=== PATIENT | female | born 1985 | race Caucasian/White ===

== ENCOUNTER 2016-12-14 15:35 | Outpatient (CLI) | payer OTHER | END 2016-12-14 16:45 | disposition home or self-care (01) | LOC: FBPOP 15:35 | PROVIDERS: ATTEND Obstetrics & Gynecology | DX: O99.89 Other specified diseases and conditions complicating pregnancy, childbirth and the puerperium (principal); R10.2 Pelvic and perineal pain; Z3A.39 39 weeks gestation of pregnancy | CPT/HCPCS: 59025; 84112; 99213 ==

== ENCOUNTER 2016-12-22 06:11 | Inpatient (IN) | payer OTHER ==
[2016-12-22] MEDS ORDERED: TERBUTALINE 1 MG/ML VIAL SQ PRN (06:23)
[2016-12-22] MEDS ORDERED: METHYLERGONOVINE 0.2 MG/ML 1 ML AMP IM PRN (06:23)
[2016-12-22] MEDS ORDERED: LIDOCAINE 1% (PF) 10 MG/ML (30 ML SDV) SQ PRN (06:23)
[2016-12-22] MEDS ORDERED: OXYTOCIN 10 UNIT/ML 1 ML VIAL IM PRN (06:23)
[2016-12-22] MEDS ORDERED: CARBOPROST TROMETHAMINE 250 MCG/ML 1 ML AMP IM PRN (06:23)
[2016-12-22] MEDS ORDERED: OXYTOCIN 30 UNITS/500 ML NS 30 UNIT in SALINE 1 500ML.BAG IV SCH (06:30)
[2016-12-22] MEDS: LACTATED RINGERS 1,000 ML IV SCH ×2 (06:52→09:52)
[2016-12-22 07:03] LABS: Basophils % (A) 1 %; CH 34.6; CHCM 36.5; Eosinophils % (A) 1 %; HCT 38.8 % (34.0-46.0); HDW 2.82; HGB 13.7 gm/dL (11.4-16.0); Luc # (Auto) 0.17; Luc % (Auto) 3; Lymphocytes # (A) 1.5 k/uL (1.0-4.8); Lymphocytes % (A) 27 %; MCH 33.8 pg (25.0-35.0); MCHC 35.4 g/dL (31.0-37.0); MCV 95.3 fL (80.0-100.0); Mean Platelet Volume 8.4; Monocytes # (A) 0.4 k/uL (0-1.0); Monocytes % (A) 8 %; Neutrophils # (A) 3.3 k/uL (1.3-7.7); Neutrophils % (A) 61 %; RBC 4.07 m/uL (3.80-5.40); RDW 13.1 % (11.5-15.5); WBC 5.5 k/uL (3.8-10.6); WBC (Perox) 5.59
[2016-12-22] MEDS ORDERED: SODIUM CHLORIDE 0.9% 100 ML BAG ONE (09:34)
[2016-12-22] MEDS ORDERED: BUPIVACAINE (PF) 0.25% 30 ML VIAL ONE (09:34)
[2016-12-22] MEDS ORDERED: fentaNYL (PF) 50 MCG/ML 5 ML AMP ONE (09:34)
[2016-12-22] MEDS ORDERED: BUPIVACAINE (PF) 0.25% 25 ML, fentaNYL (PF) 200 MCG in SODIUM CHLORIDE 0.9% 71 ML EPIDURAL ONE (09:51)
--- NOTE | 2016-12-22 10:28 | P.HPOB ---
History of Present Illness H&P Date: 12/22/16 Chief Complaint: My water broke at 5:30 this morning This is a 31-year-old white female 5 para 1031 EDC 12/21/2016 at 40 and one sevenths weeks' gestation. Patient presented early this morning with a history of spontaneous amniorrhexis, dark green fluid. Fetus is been active throughout the . She denied vaginal bleeding, denies uterine contractions upon admission. Past medical history is significant for menorrhagia and ovarian cysts. Past surgical history is significant for wisdom teeth extracted. Current medications vitamins daily. ALLERGIES include penicillin to which reports emesis. Family history is essentially unremarkable. Reproductive history is significant for vaginal delivery 2009, 8 lbs. 10 oz. female infant with mild shoulder dystocia, no residual. 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 Past obstetric history: Blood type is B+, rubella status immune. VDRL testing, urine culture, group strep cultures, hepatitis B surface antigen, HIV testing, gonorrhea and chlamydia cultures all negative. One hour Glucola 136. On exam this is a pleasant white female, 5 foot 2 inches, 175 pounds, blood pressure 118/72 on admission. The general physical exam is within normal limits. The extremities reveal no edema. The cervix at this time is 4 cm dilated, 90% effaced, -2 station, vertex presentation. heart rate is in the 130s with frequent accelerations, consistent with reactive NST. Meconium- stained fluid is noted on the perineal body. Impression: 40 and one sevenths weeks intrauterine , early spontaneous labor, meconium-stained fluid, all other signs reassuring. Plan: Close maternal and surveillance. Oxytocin augmentation as needed. Anticipate normal spontaneous vaginal delivery. Review of Systems Negative except as in HPI Past Medical History Past Medical History: No Reported History History of Any Multi-Drug Resistant Organisms: None Reported Additional Past Surgical History / Comment(s): wisdom teeth Past Anesthesia/Blood Transfusion Reactions: No Reported Reaction Past Psychological History: No Psychological Hx Reported Smoking Status: Never smoker Past Alcohol Use History: None Reported Past Drug Use History: None Reported - Past Family History Mother Family Medical History: Cancer Medications and Allergies Home Medications Medication Instructions Recorded Confirmed Type Pediatric Multivit Comb #25/FA 1 tab PO DAILY 08/09/16 12/22/16 History [Flintstones Multivit Chew Tab] Allergies Allergy/AdvReac Type Severity Reaction Status Date / Time Penicillins Allergy Vomiting Verified 12/22/16 06:18 Exam - Vital Signs Vital signs: Vital Signs Temp Pulse Resp BP 12/22/16 06:22 96.9 F L 104 H 16 115/72 Intake and Output 12/21/16 12/22/16 12/22/16 22:59 06:59 14:59 Other: Weight 79.379 kg See dictation under HPI, please Results Result Diagrams: 12/22/16 06:56 Assessment and Plan Plan: Close maternal and surveillance. Epidural has been placed per her request. Oxytocin augmentation as needed. Anticipate normal spontaneous vaginal delivery. Time with Patient: Less than 30
[2016-12-22] MEDS ORDERED: BENZOCAINE/MENTHOL SPRAY 1 GM/SPRAY AEROSOL TOPICAL PRN (12:04)
[2016-12-22] MEDS ORDERED: ACETAMINOPHEN TAB 325 MG TAB PO PRN (12:04)
[2016-12-22] MEDS ORDERED: SIMETHICONE 80 MG CHEWABLE PO PRN (12:04)
[2016-12-22] MEDS ORDERED: diphenhydrAMINE 25 MG CAP PO PRN (12:04)
[2016-12-22] MEDS ORDERED: ZOLPIDEM 5 MG TAB PO PRN (12:04)
[2016-12-22] MEDS ORDERED: LANOLIN CREAM 5 GM TUBE TOPICAL PRN (12:04)
[2016-12-22] MEDS ORDERED: HYDROCORTISONE 2.5% RECTAL CREAM 30 GM TUBE RECTAL PRN (12:04)
[2016-12-22] MEDS ORDERED: diphenhydrAMINE ELIXIR 25 MG/10 ML CUP PO PRN (12:04)
[2016-12-22] MEDS ORDERED: Acetaminophen-Codeine 300-30mg TAB PO PRN (12:04)
[2016-12-22] MEDS ORDERED: diphenhydrAMINE 50 MG/ML 1 ML VIAL IVP PRN ×2 (12:04)
[2016-12-22] MEDS ORDERED: WITCH HAZEL 1 EACH MED..PAD TOPICAL PRN (12:04)
[2016-12-22] MEDS ORDERED: diphenhydrAMINE 50 MG CAP PO PRN (12:04)
--- NOTE | 2016-12-22 12:04 | P.PROBDLV ---
Vaginal Delivery Note - . Vaginal Delivery Note: This is a 31-year-old white female 1 para 1031 EDC 12/21/2016 at 40 and one sevenths weeks' gestation. Patient presented to labor and delivery with a history of spontaneous rupture of membranes, dark green meconium-stained fluid, at 0530 hours. She denied uterine contractions on admission. Fetus is been active throughout the . Blood type B positive, group B strep cultures negative, rubella status immune. Please see my dictated history and physical for details. Patient was admitted, oxytocin augmentation was started and titrated per hospital protocol. She became uncomfortable and requested epidural, this was placed without difficulty per the anesthesia staff. She progressed through the first stage of labor, heart tones were reassuring throughout the first and second stages. Ultimately she became completely dilated at 1141 hours. The perineal body was prepped and draped in usual sterile fashion. With excellent maternal expulsive efforts the 's head crowned occiput anterior and he restituted accordingly. There was a nuchal cord 1 that was reduced on the perineal body. The left or anterior shoulder was gently and easily delivered from underneath the pubic symphysis at which time the oropharynx, nasopharynx, and external nares were thoroughly suctioned with bulb suctioned. Patient was officially delivered of a liveborn male infant at 1148 hours. Umbilical cord was doubly clamped and ligated, he was handed to waiting nurses for evaluation where scores of 8 and 9 at one and 5 minutes respectively were given. The placenta delivered spontaneously, it was inspected and noted to be darkly meconium stained, otherwise intact with trivascular cord at 1151 hours. At this time the perineal body was redraped. Inspection of the cervix, vagina, perineum, periurethral, and perirectal areas revealed no significant lacerations or defects. Fundus is firm and in the midline, symmetric and 18 week size. Total estimated blood loss 350 mL's. All sponge needle and instrument counts are correct at the end of the procedure. Patient and her family are requesting circumcision further infant son. They are allowed to begin the bonding experience in the LDR. 's weight 7 lbs. 9 oz. or 3420 g.
[2016-12-22 12:16] VITALS: RESP 16
[2016-12-22] MEDS: IBUPROFEN 600 MG TAB PO PRN ×2 (16:11→22:35)
[2016-12-22] MEDS: SENNOSIDES-DOCUSATE SODIUM 1 EACH TAB PO SCH (20:48)
[2016-12-22] MEDS: OXYTOCIN 30 UNITS/500 ML NS 30 UNIT in SALINE 1 500ML.BAG IV SCH ×2 (21:01→21:02)
[2016-12-23] MEDS: IBUPROFEN 600 MG TAB PO PRN (08:10)
[2016-12-23] MEDS: SENNOSIDES-DOCUSATE SODIUM 1 EACH TAB PO SCH (08:15)
--- NOTE | 2016-12-23 09:23 | P.DS ---
Providers Date of admission: 12/22/16 06:21 Expected date of discharge: 12/23/16 Attending physician: Aby Null Primary care physician: Stated None Hospital Course: This is a 31-year-old white female 5 para 1031 EDC 12/21/2016 who presented at 40 and one sevenths weeks' gestation with Spontaneous amniorrhexis , meconium-stained fluid. Please see my dictated history and physical for details. Oxytocin augmentation was started. Epidural was placed per her request. She went on to deliver a liveborn male infant with scores of 8 and 9 at one and 5 minutes respectively. weighed 7 lbs. 9 oz. or 30 420 g. There was an estimated blood loss recorded at 350 mL's. No perineal lacerations were encountered. Please see my dictated delivery note for details. This morning the patient is doing well. She is voiding, ambulating and passing flatus without difficulty. Vital signs are stable and she is afebrile. Extremities reveal no edema. Breasts are not engorged. Circumcision has been performed on her son. Fundus is firm and in the midline, symmetric and 18 week size. Breast-feeding is going well. Patient is being discharged home in very good condition. She will follow-up with me in the office in 6 weeks. I have reminded her no intercourse, tampons or douching. She will continue to use [id number] products as needed for pain, ibuprofen, 200 mg, 3 every 6 hours as needed. I have asked her to call with any fevers shakes or chills, foul smelling or copious lochia, with the passage of large blood clots, with any pain not alleviated by ibuprofen, or indeed with any concerns. We have briefly reviewed her options for contraception and we will discuss this further in the office. Patient Condition at Discharge: Good Plan - Discharge Summary Discharge Medication List Pediatric Multivit Comb #25/FA [Flintstones Multivit Chew Tab] 1 tab PO DAILY [History] Follow up Appointment(s)/Referral(s): Aby Null MD [STAFF PHYSICIAN] - 6 Weeks Discharge Disposition: HOME SELF-CARE
[2016-12-23 16:47] VITALS: BP 123/68; PULSE 89; TEMP 97.5
== END 2016-12-23 16:45 | disposition home or self-care (01) | DRG 775 ==
LOC: FBPOP 06:11 → 4FBP 06:21
PROVIDERS: ADMIT Obstetrics & Gynecology; ATTEND Obstetrics & Gynecology
PROC: 10E0XZZ Delivery of Products of Conception, External Approach (ICD-10-PCS; principal; 2016-12-22)
PROC: 00HU33Z Insertion of Infusion Device into Spinal Canal, Percutaneous Approach (ICD-10-PCS; 2016-12-22)
PROC: 3E0R3CZ (ICD-10-PCS; 2016-12-22)
DX: O77.0 Labor and delivery complicated by meconium in amniotic fluid (principal); O69.81X0 Labor and delivery complicated by cord around neck, without compression, not applicable or unspecified; Z37.0 Single live birth; Z88.0 Allergy status to penicillin; Z79.899 Other long term (current) drug therapy
CPT/HCPCS: 59025; 84112; 85025; 88307; 99213

== ENCOUNTER 2018-10-16 09:14 | Emergency (ER) | payer OTHER ==
[2018-10-16 09:27] VITALS: BP 114/78; PULSE 84; RESP 16; TEMP 98.7
[2018-10-16] MEDS ORDERED: ONDANSETRON ODT 4 MG TAB PO STA (09:51)
--- NOTE | 2018-10-16 09:56 | ED ---
Head Injury HPI - General Chief complaint: Head Injury Stated complaint: [facility] head injury Time Seen by Provider: 10/16/18 09:28 Source: patient, RN notes reviewed Mode of arrival: ambulatory Limitations: no limitations - History of Present Illness Initial comments: 33-year-old female sent emergency Department chief complaint of head injury. Patient states she was at work empty cooler when she struck her head. She states she felt dazed, very dizzy and no disorientated. She still just feels off. She has mid to nausea and photophobia. Patient states that she did not lose conscious. Patient denies any focal weakness. Patient states that she's never had an injury like this in the past. Patient denies any chest pain, shortness breath,, extremity injury, paresthesias, chance - Related Data Home Medications Medication Instructions Recorded Confirmed Pedi Multivit No.25/Folic Acid 1 tab PO DAILY 08/09/16 12/22/16 [Flintstones Multivit Chew Tab] Allergies/Adverse reactions: Allergies Allergy/AdvReac Type Severity Reaction Status Date / Time Penicillins Allergy Vomiting Verified 10/16/18 09:27 Review of Systems ROS Statement: Those systems with pertinent positive or pertinent negative responses have been documented in the HPI. ROS Other: All systems not noted in ROS Statement are negative. Past Medical History Past Medical History: No Reported History History of Any Multi-Drug Resistant Organisms: None Reported Additional Past Surgical History / Comment(s): wisdom teeth Past Anesthesia/Blood Transfusion Reactions: No Reported Reaction Past Psychological History: No Psychological Hx Reported Smoking Status: Never smoker Past Alcohol Use History: Occasional Past Drug Use History: None Reported - Past Family History Mother Family Medical History: Cancer General Exam Limitations: no limitations General appearance: alert, in no apparent distress Head exam: Present: atraumatic, normocephalic, normal inspection Eye exam: Present: normal appearance, PERRL, EOMI. Absent: scleral icterus, conjunctival injection, periorbital swelling ENT exam: Present: normal exam, normal oropharynx, mucous membranes moist, TM's normal bilaterally, normal external ear exam Neck exam: Present: normal inspection, full ROM. Absent: tenderness, meningismus, lymphadenopathy Respiratory exam: Present: normal lung sounds bilaterally. Absent: respiratory distress, wheezes, rales, rhonchi, stridor Cardiovascular Exam: Present: regular rate, normal rhythm, normal heart sounds. Absent: systolic murmur, diastolic murmur, rubs, gallop, clicks Extremities exam: Present: normal inspection, full ROM, normal capillary refill. Absent: tenderness, pedal edema, joint swelling, calf tenderness Neurological exam: Present: alert, oriented X3, CN II-XII intact, normal gait, reflexes normal, other (Finger to nose intact bilaterally without over shooting) . Absent: motor sensory deficit Skin exam: Present: warm, dry, intact, normal color. Absent: rash Course Vital Signs 10/16/18 09:24 Temperature 98.7 F Pulse Rate 84 Respiratory 16 Rate Blood Pressure 114/78 O2 Sat by Pulse 98 Oximetry Medical Decision Making - Medical Decision Making 33-year-old female presents emergency department for head injury at work. CT was obtained shows no acute abnormality. Patient does have mild concussion symptoms. Patient we discharged with follow-up with [facility] and return parameters were discussed. Patient will be provided nausea medication. - Radiology Data Radiology results: report reviewed, image reviewed CT brain no acute abnormality. Disposition Clinical Impression: Concussion without loss of consciousness Disposition: HOME SELF-CARE Condition: Stable Instructions: Concussion (ED) Additional Instructions: Please return to the Emergency Department if symptoms worsen or any other concerns. Is patient prescribed a controlled substance at d/c from ED?: No Referrals: None,Stated [Primary Care Provider] - 1-2 days Time of Disposition: 10:21
--- NOTE | 2018-10-16 10:18 | CT ---
EXAMINATION TYPE: CT brain wo con DATE OF EXAM: 10/16/2018 COMPARISON: None HISTORY: Head injury with vision changes and headache. CT DLP: 1119.4 mGycm. Automated Exposure Control for Dose Reduction was Utilized. TECHNIQUE: CT scan of the head is performed without contrast. FINDINGS: There is no acute intracranial hemorrhage, mass effect, or midline shift identified. The ventricles and sulci are within normal limits in size. Suspect artifact over the temporal region axi al image 11 near skull base The globes are intact and the visualized sinuses are clear. The calvariu m is intact. IMPRESSION: No acute intracranial hemorrhage or midline shift is seen.
[2018-10-16] MEDS ORDERED: ONDANSETRON 4 MG ODT STARTER PACK 2 TAB BTL PO STA (10:20)
== END 2018-10-16 10:40 | disposition home or self-care (01) ==
LOC: EC 09:14
DX: S06.0X0A Concussion without loss of consciousness, initial encounter (principal); R11.0 Nausea; Z88.0 Allergy status to penicillin; W22.8XXA Striking against or struck by other objects, initial encounter; Y92.69 Other specified industrial and construction area as the place of occurrence of the external cause; Y99.0 Civilian activity done for income or pay
CPT/HCPCS: 70450; 99283; S0119

== ENCOUNTER → 2018-10-17 | Outpatient (CLI) | payer OTHER ==
--- NOTE | 2018-10-17 10:43 | CT ---
EXAMINATION TYPE: CT cervical spine wo con DATE OF EXAM: 10/17/2018 COMPARISON: None HISTORY: Sprain Ligaments Cervical Spine, trauma and pain CT DLP: 397.3 mGycm Automated exposure control for dose reduction was used. TECHNIQUE: CT scan of the cervical spine is obtained without contrast, axial images are obtained, sagittal and c oronal reformatted images are also reviewed. FINDINGS: Reversal of normal cervical lordosis may be due to muscle spasm. Mild spondylosis is present C2-3, C3 -4 and C4-5, C5-6. Cervical spine is visualized in its entirety from C1 through upper thoracic levels, demonstrates sati sfactory alignment without evidence of acute fracture or dislocation. Prevertebral soft tissue appea rs within normal limits. The C1-C2 articulation is within normal limits on the coronal images. IMPRESSION: There is no acute fracture or dislocation evident in the cervical spine. Some degenerative disc patel es are present.
== END ==
LOC: RADCTMAIN 10:05
PROVIDERS: ATTEND Emergency Medicine
DX: S13.4XXA Sprain of ligaments of cervical spine, initial encounter (principal); M50.30 Other cervical disc degeneration, unspecified cervical region
CPT/HCPCS: 72125

== ENCOUNTER → 2018-12-20 | Outpatient (CLI) | payer OTHER ==
--- NOTE | 2018-12-21 04:26 | MR ---
EXAMINATION TYPE: MR cervical spine wo con DATE OF EXAM: 12/20/2018 COMPARISON: None HISTORY: Cervicalgia TECHNIQUE: Multiplanar, multisequence images of the cervical spine were acquired. There is mild straightening of the mid cervical spine. There is small posterior disc bulging at C4-5 C5-6. Cervical spinal cord has normal signal pattern. There is no edema. There is no spinal stenosis. There is developmentally large spinal canal. Brainstem is intact. I see no bony destructive process. There is no cervical paraspinal mass. There is no evidence for fracture. IMPRESSION: Mild spondylotic changes in the lower cervical spine. No fracture. No spinal stenosis.
== END | disposition home or self-care (01) ==
LOC: RADMRIMAIN 12:15
PROVIDERS: ATTEND Emergency Medicine
DX: M47.812 Spondylosis without myelopathy or radiculopathy, cervical region (principal); S13.4XXD Sprain of ligaments of cervical spine, subsequent encounter
CPT/HCPCS: 72141

== ENCOUNTER 2019-08-20 13:12 | Emergency (ER) | payer OTHER ==
--- NOTE | 2019-08-20 13:18 | ED ---
Chest Pain HPI - General Stated Complaint: Cardiac issuses Time Seen by Provider: 08/20/19 13:12 Source: patient, EMS, RN notes reviewed Mode of arrival: EMS - History of Present Illness Initial Comments: This is a 33-year-old female with a benign past medical history states she had the onset 2 days ago of intermittent episodes of left-sided chest pain that radiates to her back. She states it be random sporadic not associated with any movement deep breathing. She currently is pain-free she has no prior history of any heart or lung disease she does not smoke or drink. No recent cold or flu symptoms no cough or phlegm production. No heavy lifting. Patient does deny any chance she states her menstrual period is due to start any day now. MD Complaint: chest pain - Related Data Previous Rx's Medication Instructions Recorded Ibuprofen [Motrin] 600 mg PO Q6HR PRN #20 tab 08/20/19 Allergies Allergy/AdvReac Type Severity Reaction Status Date / Time Penicillins AdvReac Vomiting Verified 08/20/19 13:32 Review of Systems ROS Statement: Those systems with pertinent positive or pertinent negative responses have been documented in the HPI. ROS Other: All systems not noted in ROS Statement are negative. EKG Findings - EKG Results: EKG: interpreted by ROMI, sinus rhythm (Normal sinus rhythm 82. Interval 160 QRS duration 72 QT QT/QTC 372/434 this is normal looking EKG) Past Medical History Past Medical History: No Reported History History of Any Multi-Drug Resistant Organisms: None Reported Additional Past Surgical History / Comment(s): wisdom teeth Past Anesthesia/Blood Transfusion Reactions: No Reported Reaction Past Psychological History: No Psychological Hx Reported Smoking Status: Never smoker Past Alcohol Use History: Occasional Past Drug Use History: None Reported - Past Family History Mother Family Medical History: Cancer General Exam - General Exam Comments Initial Comments: This a well-developed well-nourished awake alert oriented 3 female General appearance: alert, in no apparent distress Head exam: Present: atraumatic, normocephalic, normal inspection Eye exam: Present: normal appearance, PERRL, EOMI. Absent: scleral icterus, conjunctival injection, periorbital swelling ENT exam: Present: normal exam, mucous membranes moist Neck exam: Present: normal inspection, full ROM, other (No stridor JVD or bruits). Absent: tenderness, meningismus, lymphadenopathy Respiratory exam: Present: normal lung sounds bilaterally, chest wall tenderness (Tennis palpation of the left costochondral costal sternal margins no step-off or crepitation this does somewhat reproduce the patient's pain.). Absent: respiratory distress, wheezes, rales, rhonchi, stridor Cardiovascular Exam: Present: regular rate, normal rhythm, normal heart sounds. Absent: systolic murmur, diastolic murmur, rubs, gallop, clicks GI/Abdominal exam: Present: soft, normal bowel sounds. Absent: distended, tenderness, guarding, rebound, rigid Extremities exam: Present: normal inspection, full ROM, normal capillary refill. Absent: tenderness, pedal edema, joint swelling, calf tenderness Back exam: Present: normal inspection, tenderness (Some mild left paraspinous muscle tenderness palpation over the paraspinous muscles mostly in the left.) Neurological exam: Present: alert, oriented X3, CN II-XII intact Psychiatric exam: Present: normal affect, normal mood Skin exam: Present: warm, dry, intact, normal color. Absent: rash Course Vital Signs 08/20/19 13:25 Temperature 98.1 F Pulse Rate 81 Respiratory 18 Rate Blood Pressure 112/87 O2 Sat by Pulse 100 Oximetry Chest Pain MDM - MDM I did review the imaging and report no acute findings. Patient had several twinges of pain no PVCs were seen on my evaluation or the patient does state that she did notice occasional PVC on the monitor when she He feel some physical manifestation. October further workup is indicated patient be discharged the presentation is consistent with costochondritis. A thyroid profile is been admitted the patient was encouraged to get a family physician. Disposition Clinical Impression: Costochondritis, Chest wall syndrome Disposition: HOME SELF-CARE Condition: Good Instructions (If sedation given, give patient instructions): Costochondritis (ED) Prescriptions: Ibuprofen [Motrin] 600 mg PO Q6HR PRN #20 tab PRN Reason: Pain Is patient prescribed a controlled substance at d/c from ED?: No Referrals: None,Stated [Primary Care Provider] - 1-2 days
[2019-08-20 13:30] VITALS: TEMP 98.1
--- NOTE | 2019-08-20 13:54 | XR ---
EXAMINATION TYPE: XR chest 2V DATE OF EXAM: 08/20/2019 COMPARISON: NONE TECHNIQUE: PA and lateral views submitted. HISTORY: Chest pain FINDINGS: The lungs are clear and there is no pneumothorax, pleural effusion, or focal pneumonia. No overt fa ilure. Heart size is normal. IMPRESSION: 1. No acute process.
[2019-08-20 14:04] LABS: Basophils % (A) 0 %; Eosinophils # (A) 0.1 k/uL (0-0.7); Eosinophils % (A) 2 %; HCT 39.9 % (34.0-46.0); HGB 14.1 gm/dL (11.4-16.0); Lymphocytes # (A) 1.6 k/uL (1.0-4.8); Lymphocytes % (A) 28 %; MCHC 35.2 g/dL (31.0-37.0); MCV 90.8 fL (80.0-100.0); Mean Platelet Volume 6.4; Monocytes # (A) 0.3 k/uL (0-1.0); Monocytes % (A) 5 %; Neutrophils # (A) 3.7 k/uL (1.3-7.7); Neutrophils % (A) 63 %; Platelet Count 208 k/uL (150-450); RDW 12.1 % (11.5-15.5); WBC 5.8 k/uL (3.8-10.6)
[2019-08-20 14:09] LABS: ALT 16 U/L (9-52); AST 18 U/L (14-36); African American GFR (CKD) >90 (>60 ml/min/1.73 sqM); Albumin 4.5 g/dL (3.5-5.0); Alkaline Phosphatase 109 U/L (38-126); Anion Gap 11 mmol/L; Blood Urea Nitrogen 14 mg/dL (7-17); Calcium 9.3 mg/dL (8.4-10.2); Carbon Dioxide 23 mmol/L (22-30); Chloride 105 mmol/L (98-107); Creatine Kinase 35 U/L (30-135); Glucose 84 mg/dL (74-99); Magnesium 1.9 mg/dL (1.6-2.3); Potassium 3.7 mmol/L (3.5-5.1); Sodium 139 mmol/L (137-145); Total Bilirubin 0.6 mg/dL (0.2-1.3); Total Protein 7.6 g/dL (6.3-8.2)
[2019-08-20 14:22] LABS: Amorphous Sediment,Urine Few /hpf; Appearance,Urine Cloudy (Clear); Bacteria,Urine Occasional /hpf; Bilirubin,Urine Negative (Negative); Blood,Urine Negative (Negative); Color,Urine Light Yellow; Glucose,Urine (UA) Negative (Negative); Ketones,Urine Trace (Negative); Leukocyte Esterase,Urine Large (Negative); Mucus,Urine Occasional /hpf; Nitrite,Urine Negative (Negative); PH, Urine 5.5 (5.0-8.0); Protein,Urine Negative (Negative); RBC,Urine 1 /hpf (0-5); Specific Gravity,Urine 1.015 (1.001-1.035); Squamous Epithelial Cell,Urine 13 /hpf (0-4); Urobilinogen,Urine <2.0 mg/dL (<2.0); WBC,Urine 47 /hpf (0-5)
[2019-08-20 14:23] LABS: D-Dimer 0.35 mg/L FEU (<0.60); Partial Thromboplastin Time 24.4 sec (22.0-30.0); Prothrombin Time 10.4 sec (9.0-12.0)
[2019-08-20] MEDS ORDERED: KETOROLAC 30 MG/ML 1 ML VIAL IVP STA (14:45)
[2019-08-20 15:17] VITALS: PULSE 72; RESP 16
[2019-08-20 15:18] VITALS: BP 112/77
== END 2019-08-20 15:24 | disposition home or self-care (01) ==
LOC: EC 13:12
DX: M94.0 Chondrocostal junction syndrome [Tietze] (principal); Z88.0 Allergy status to penicillin
CPT/HCPCS: 36415; 93005; 85379; 83880; 80053; 84443; 82550; 83690; 83735; 84484; 85025; 85610; 85730; 81001; 81025; 71046; 99285; 96374; J1885